=== PATIENT | female | born 1990 | race African-American/Black ===

== ENCOUNTER 2021-07-27 23:32 | Emergency (ER) | payer MEDICAID ==
[~2021-07-27] VITALS: Ht 157.5 cm; Wt 75.0 kg
[2021-07-28 02:22] VITALS: BP 145/86
[2021-07-28 03:17] LABS: CLARITY URINE CLEAR (CLEAR); COLOR URINE YELLOW (YELLOW); KETONES URINE TRACE (NEGATIVE); LEUKOCYTE ESTERASE URINE TRACE (NEGATIVE); NITRITE URINE NEGATIVE (NEGATIVE); OCCULT BLOOD URINE NEGATIVE (NEGATIVE); PROTEIN URINE NEGATIVE (NEGATIVE); SPECIFIC GRAVITY URINE 1.024 (1.005-1.030)
[2021-07-28] MEDS ORDERED: CLOT21CR4 VG (03:55)
[2021-07-28] MEDS ORDERED: METR-167 PO (03:55)
== END 2021-07-28 04:10 | disposition home or self-care (01) ==
LOC: ER 23:32
DX: N76.0 Acute vaginitis (principal); B96.89 Other specified bacterial agents as the cause of diseases classified elsewhere
CPT/HCPCS: 81003; 87210; 99283